=== PATIENT | male | born 1950 | race Caucasian/White ===

== ENCOUNTER 2022-02-18 10:01 | Inpatient (IN) ==
[2022-02-18] MEDS ORDERED: ONDANSETRON 4 MG/2 ML VIAL IV STA (12:03)
[2022-02-18] MEDS ORDERED: SODIUM CHLORIDE 0.9% 1,000 ML IV STA (12:03)
[2022-02-18 12:16] LABS: Basophils % 0.1 % (0.0-0.8); Eosinophils % 0.1 % (0.00-10.9); Hematocrit 26.9 VOL% (42.0-52.0); Hemoglobin 8.5 GM/DL (14.0-18.0); Immature Granulocytes % 0.9 %; Immature Granulocytes Absolute 0.11 #; Lymphocytes % 8.7 % (21.2-54.2); Mean Corpuscular HGB Conc 31.6 GM/DL (32-36); Mean Corpuscular Volume 69.5 FL (87-102); Mean Platelet Volume 10.8 FL (9.6-12.0); Monocytes # 0.8 10*3/uL (0.11-0.8); Monocytes % 6.8 % (1.7-12.7); Neutrophils % 83.4 % (38.7-73.9); Platelet Count 341 T/CUMM (130-400); Red Blood Count 3.87 MC/CUMM (3.8-5.5); Red Cell Distribution Width 19.2 % (9.3-17.3); White Blood Count 11.7 T/CUMM (4-12)
[2022-02-18 12:42] LABS: Albumin 2.1 G/DL (3.4-5.0); Bilirubin,Total 3.8 MG/DL (0.20-1.00); Calcium 8.3 MG/DL (8.5-10.1); Osmolality,Calculated 270.5 MOS/KG (273-304); Potassium 3.3 MMOL/L (3.5-5.1); Total Protein 6.5 G/DL (6.4-8.2)
[2022-02-18] MEDS ORDERED: cefTRIAXone 1,000 MG in SODIUM CHLORIDE 0.9% 100 ML IV STA (14:54)
[2022-02-18 15:48] LABS: Mucus,Urine Few /LPF (Occasional); RBC,Urine 2 /HPF (0-4); Squamous Epithelial Cell,Urine Occasional /HPF (0-10)
[2022-02-18 15:49] LABS: Bilirubin,Urine Large mg/dL (Negative); Blood, Urine Trace mg/dL (Negative); Glucose,Urine (UA) Negative (Negative); Ketones,Urine Negative (Negative); Nitrite,Urine Negative (Negative); Protein,Urine 100 mg/dL (Negative); Urine Appearance Clear (Clear); Urine Color Orange (Yellow); Urine Specific Gravity <= 1.005 (1.001-1.035); Urine Urobilinogen >= 8.0 eU/dL (<2.0); Urine pH 5.5 (4.5-8.0)
[2022-02-18] MEDS ORDERED: POTASSIUM CHLORIDE 20 MEQ TABLET PO ONE (16:07)
[2022-02-18] MEDS ORDERED: hydrALAZINE 20 MG/1 ML VIAL IV PRN (16:11)
[2022-02-18] MEDS: SODIUM CHLORIDE 0.9% 1,000 ML IV SCH (16:56)
[2022-02-18] MEDS: ALBUTEROL/IPRATROPIUM 3 ML NEB RESP TX SCH (17:10)
[2022-02-18] MEDS: MORPHINE 2 MG/1 ML SYRINGE IV PRN ×2 (18:48→23:15)
[2022-02-18] MEDS: ONDANSETRON 4 MG/2 ML VIAL IV PRN (18:49)
[2022-02-18] MEDS: TAMSULOSIN 0.4 MG CAPSULE PO SCH (22:05)
[2022-02-18] MEDS: FLUTICASONE/SALMETEROL 100-50 DISKUS 14 DOSE INH SCH (22:05)
[2022-02-18] MEDS: METOPROLOL TARTRATE 25 MG TABLET PO SCH (22:05)
[2022-02-19] MEDS: ALBUTEROL/IPRATROPIUM 3 ML NEB RESP TX SCH ×4 (00:05→18:52)
[2022-02-19 00:36] LABS: % Iron Saturation 3.8 % (18-50); Ferritin 320.2 ng/mL (26-388)
[2022-02-19] MEDS: SODIUM CHLORIDE 0.9% 1,000 ML IV SCH ×3 (03:57→23:52)
[2022-02-19 04:47] LABS: Basophils % 0.2 % (0.0-0.8); Eosinophils % 0.2 % (0.00-10.9); Hematocrit 24.4 VOL% (42.0-52.0); Hemoglobin 7.5 GM/DL (14.0-18.0); Immature Granulocytes % 1.2 %; Immature Granulocytes Absolute 0.12 #; Lymphocytes % 9.7 % (21.2-54.2); Mean Corpuscular HGB Conc 30.7 GM/DL (32-36); Mean Corpuscular Volume 70.5 FL (87-102); Mean Platelet Volume 10.6 FL (9.6-12.0); Monocytes # 0.8 10*3/uL (0.11-0.8); Monocytes % 8.5 % (1.7-12.7); Neutrophils % 80.2 % (38.7-73.9); Platelet Count 327 T/CUMM (130-400); Red Blood Count 3.46 MC/CUMM (3.8-5.5); Red Cell Distribution Width 19.6 % (9.3-17.3); White Blood Count 9.9 T/CUMM (4-12)
[2022-02-19 05:08] LABS: Albumin 1.8 G/DL (3.4-5.0); Bilirubin,Total 2.8 MG/DL (0.20-1.00); Calcium 7.8 MG/DL (8.5-10.1); Osmolality,Calculated 277.7 MOS/KG (273-304); Potassium 3.4 MMOL/L (3.5-5.1); Total Protein 5.3 G/DL (6.4-8.2)
[2022-02-19 07:57] LABS: PT Patient Result 11.4 SECS (10.1-12.1)
[2022-02-19] MEDS: cefTRIAXone 1,000 MG in SODIUM CHLORIDE 0.9% 100 ML IV ONE (08:43)
[2022-02-19] MEDS: OLMESARTAN 20 MG TABLET PO SCH (08:49)
[2022-02-19] MEDS: METOPROLOL TARTRATE 25 MG TABLET PO SCH ×2 (08:49→21:04)
[2022-02-19] MEDS: PANTOPRAZOLE 40 MG TABLET PO SCH (08:49)
[2022-02-19] MEDS: FLUTICASONE/SALMETEROL 100-50 DISKUS 14 DOSE INH SCH ×2 (08:50→22:03)
[2022-02-19] MEDS: amLODIPine 10 MG TABLET PO SCH (09:01)
[2022-02-19] MEDS: NICOTINE 21 MG/24 HR PATCH TRANSDERM SCH (09:11)
[2022-02-19] MEDS ORDERED: POTASSIUM CHLORIDE 20 MEQ TABLET PO ONE (14:43)
[2022-02-19] MEDS: MORPHINE 2 MG/1 ML SYRINGE IV PRN (19:02)
[2022-02-19] MEDS: TAMSULOSIN 0.4 MG CAPSULE PO SCH (21:04)
[2022-02-19] MEDS: FERROUS SULFATE 325 MG TABLET PO SCH (21:04)
[2022-02-20] MEDS: ALBUTEROL/IPRATROPIUM 3 ML NEB RESP TX SCH ×4 (00:20→19:39)
[2022-02-20] MEDS ORDERED: LIDOCAINE 2% TOP JELLY 20 ML VIAL INTRAURETH ONE (08:07)
[2022-02-20] MEDS: SODIUM CHLORIDE 0.9% 1,000 ML IV SCH ×2 (08:28→21:07)
[2022-02-20] MEDS ORDERED: DIAZEPAM 5 MG TABLET PO ONE (08:30)
[2022-02-20] MEDS ORDERED: fentaNYL 100 MCG/2 ML VIAL ONE (08:57)
[2022-02-20] MEDS ORDERED: MIDAZOLAM 2 MG/2 ML VIAL ONE (08:58)
[2022-02-20] MEDS: amLODIPine 10 MG TABLET PO SCH (09:00)
[2022-02-20] MEDS: FERROUS SULFATE 325 MG TABLET PO SCH ×2 (09:00→21:06)
[2022-02-20] MEDS: FLUTICASONE/SALMETEROL 100-50 DISKUS 14 DOSE INH SCH ×2 (09:00→21:07)
[2022-02-20] MEDS: OLMESARTAN 20 MG TABLET PO SCH (09:00)
[2022-02-20] MEDS: METOPROLOL TARTRATE 25 MG TABLET PO SCH ×2 (09:00→21:06)
[2022-02-20] MEDS: NICOTINE 21 MG/24 HR PATCH TRANSDERM SCH (09:00)
[2022-02-20] MEDS: PANTOPRAZOLE 40 MG TABLET PO SCH (09:00)
[2022-02-20] MEDS ORDERED: propofoL 200 MG/20 ML VIAL IV ONE (09:15)
[2022-02-20] MEDS ORDERED: ONDANSETRON 4 MG/2 ML VIAL ONE (09:15)
[2022-02-20] MEDS ORDERED: LIDOCAINE 2% 5 ML VIAL ONE (09:15)
[2022-02-20] MEDS: cefTRIAXone 1,000 MG in SODIUM CHLORIDE 0.9% 100 ML IV ONE (09:30)
[2022-02-20 10:05] LABS: Mucus,Urine Occasional /LPF (Occasional); Protein,Urine 100 mg/dL (Negative); RBC,Urine <1 /HPF (0-4); Urine Appearance Clear (Clear); Urine Color Amber (Yellow); Urine pH 5.5 (4.5-8.0)
[2022-02-20 10:06] LABS: Bilirubin,Urine Moderate mg/dL (Negative); Blood, Urine Trace mg/dL (Negative); Glucose,Urine (UA) 100 mg/dL (Negative); Ketones,Urine Negative (Negative); Nitrite,Urine Negative (Negative); Urine Urobilinogen > 8.0 eU/dL (<2.0)
[2022-02-20] MEDS: SODIUM CHLORIDE 0.45% 1,000 ML IV SCH (13:14)
[2022-02-20] MEDS: TAMSULOSIN 0.4 MG CAPSULE PO SCH (21:06)
[2022-02-21] MEDS: ALBUTEROL/IPRATROPIUM 3 ML NEB RESP TX SCH ×4 (00:30→19:48)
[2022-02-21] MEDS: SODIUM CHLORIDE 0.9% 1,000 ML IV SCH ×2 (06:09→17:04)
[2022-02-21 07:33] LABS: Osmolality,Calculated 279.4 MOS/KG (273-304); Potassium 3.8 MMOL/L (3.5-5.1)
[2022-02-21] MEDS: PANTOPRAZOLE 40 MG TABLET PO SCH (08:52)
[2022-02-21] MEDS: FLUTICASONE/SALMETEROL 100-50 DISKUS 14 DOSE INH SCH ×2 (08:53→20:19)
[2022-02-21] MEDS: OLMESARTAN 20 MG TABLET PO SCH (08:53)
[2022-02-21] MEDS: amLODIPine 10 MG TABLET PO SCH (08:53)
[2022-02-21] MEDS: FERROUS SULFATE 325 MG TABLET PO SCH ×2 (08:53→20:19)
[2022-02-21] MEDS: METOPROLOL TARTRATE 25 MG TABLET PO SCH ×2 (08:53→20:19)
[2022-02-21] MEDS: NICOTINE 21 MG/24 HR PATCH TRANSDERM SCH (08:54)
[2022-02-21] MEDS: SODIUM CHLORIDE 0.45% 1,000 ML IV SCH (11:37)
[2022-02-21] MEDS: TAMSULOSIN 0.4 MG CAPSULE PO SCH (20:19)
[2022-02-21] MEDS: ONDANSETRON 4 MG/2 ML VIAL IV PRN (20:20)
[2022-02-21] MEDS: MORPHINE 2 MG/1 ML SYRINGE IV PRN (20:20)
[2022-02-22] MEDS: ALBUTEROL/IPRATROPIUM 3 ML NEB RESP TX SCH ×4 (00:05→19:05)
[2022-02-22 04:52] LABS: Basophils % 0.2 % (0.0-0.8); Eosinophils # 0.1 10*3/uL (0.0-0.87); Eosinophils % 0.5 % (0.00-10.9); Hematocrit 25.2 VOL% (42.0-52.0); Hemoglobin 7.8 GM/DL (14.0-18.0); Immature Granulocytes % 1.8 %; Immature Granulocytes Absolute 0.19 #; Lymphocytes # 0.9 10*3/uL (1.4-4.0); Lymphocytes % 8.1 % (21.2-54.2); Mean Platelet Volume 10.1 FL (9.6-12.0); Monocytes # 0.7 10*3/uL (0.11-0.8); Monocytes % 6.7 % (1.7-12.7); Neutrophils % 82.7 % (38.7-73.9); Platelet Count 364 T/CUMM (130-400); White Blood Count 10.7 T/CUMM (4-12)
[2022-02-22 05:09] LABS: Albumin 1.8 G/DL (3.4-5.0); Bilirubin,Total 4.5 MG/DL (0.20-1.00); Calcium 8.5 MG/DL (8.5-10.1); Osmolality,Calculated 277.7 MOS/KG (273-304); Potassium 3.5 MMOL/L (3.5-5.1); Total Protein 5.6 G/DL (6.4-8.2)
[2022-02-22] MEDS: NICOTINE 21 MG/24 HR PATCH TRANSDERM SCH (08:46)
[2022-02-22] MEDS: amLODIPine 10 MG TABLET PO SCH (08:47)
[2022-02-22] MEDS: SODIUM CHLORIDE 0.9% 1,000 ML IV SCH (08:47)
[2022-02-22] MEDS: FLUTICASONE/SALMETEROL 100-50 DISKUS 14 DOSE INH SCH ×2 (08:47→22:19)
[2022-02-22] MEDS: FERROUS SULFATE 325 MG TABLET PO SCH ×2 (08:47→22:19)
[2022-02-22] MEDS: OLMESARTAN 20 MG TABLET PO SCH (08:47)
[2022-02-22] MEDS: METOPROLOL TARTRATE 25 MG TABLET PO SCH ×2 (08:47→22:19)
[2022-02-22] MEDS: PANTOPRAZOLE 40 MG TABLET PO SCH (08:47)
[2022-02-22] MEDS: MORPHINE 2 MG/1 ML SYRINGE IV PRN (08:48)
[2022-02-22] MEDS ORDERED: ERGOCALCIFEROL 50,000 UNIT CAPSULE PO SCH (13:30)
[2022-02-22] MEDS: TAMSULOSIN 0.4 MG CAPSULE PO SCH (22:20)
[2022-02-23 06:12] LABS: Basophils % 0.2 % (0.0-0.8); Eosinophils % 0.4 % (0.00-10.9); Hematocrit 26.3 VOL% (42.0-52.0); Hemoglobin 8.2 GM/DL (14.0-18.0); Immature Granulocytes % 2.8 %; Immature Granulocytes Absolute 0.32 #; Lymphocytes # 0.9 10*3/uL (1.4-4.0); Mean Corpuscular HGB Conc 31.2 GM/DL (32-36); Mean Corpuscular Volume 70.9 FL (87-102); Mean Platelet Volume 10.3 FL (9.6-12.0); Monocytes # 0.7 10*3/uL (0.11-0.8); Monocytes % 6.2 % (1.7-12.7); Neutrophils % 82.4 % (38.7-73.9); Platelet Count 358 T/CUMM (130-400); Red Blood Count 3.71 MC/CUMM (3.8-5.5); Red Cell Distribution Width 20.1 % (9.3-17.3); White Blood Count 11.3 T/CUMM (4-12)
[2022-02-23 06:43] LABS: Albumin 1.8 G/DL (3.4-5.0); Bilirubin,Total 5.3 MG/DL (0.20-1.00); Calcium 8.6 MG/DL (8.5-10.1); Osmolality,Calculated 275.7 MOS/KG (273-304); Total Protein 5.6 G/DL (6.4-8.2)
[2022-02-23] MEDS: ALBUTEROL/IPRATROPIUM 3 ML NEB RESP TX SCH ×4 (07:14→20:35)
[2022-02-23] MEDS: amLODIPine 10 MG TABLET PO SCH (08:56)
[2022-02-23] MEDS: METOPROLOL TARTRATE 25 MG TABLET PO SCH ×2 (08:56→20:54)
[2022-02-23] MEDS: OLMESARTAN 20 MG TABLET PO SCH (08:56)
[2022-02-23] MEDS: NICOTINE 21 MG/24 HR PATCH TRANSDERM SCH (08:57)
[2022-02-23] MEDS: FERROUS SULFATE 325 MG TABLET PO SCH ×2 (08:57→20:55)
[2022-02-23] MEDS: FLUTICASONE/SALMETEROL 100-50 DISKUS 14 DOSE INH SCH ×2 (08:57→20:55)
[2022-02-23] MEDS: PANTOPRAZOLE 40 MG TABLET PO SCH (08:57)
[2022-02-23] MEDS ORDERED: DEXAMETHASONE INJ 10 MG in SODIUM CHLORIDE 0.9% 50 ML IV ONE (15:30)
[2022-02-23] MEDS ORDERED: PALONOSETRON 0.25 MG/5 ML VIAL IV ONE (15:30)
[2022-02-23] MEDS ORDERED: ETOPOSIDE 200 MG in SODIUM CHLORIDE 0.9% 500 ML IV ONE (16:00)
[2022-02-23] MEDS: MORPHINE 2 MG/1 ML SYRINGE IV PRN (16:39)
[2022-02-23] MEDS: TAMSULOSIN 0.4 MG CAPSULE PO SCH (20:54)
[2022-02-23] MEDS: POLYETHYLENE GLYCOL POWDER 17 GM PACK PO SCH (20:55)
[2022-02-24] MEDS: ALBUTEROL/IPRATROPIUM 3 ML NEB RESP TX SCH ×4 (00:19→19:50)
[2022-02-24 05:22] LABS: Basophils % 0.1 % (0.0-0.8); Hematocrit 26.9 VOL% (42.0-52.0); Hemoglobin 8.1 GM/DL (14.0-18.0); Immature Granulocytes % 1.7 %; Lymphocytes # 0.6 10*3/uL (1.4-4.0); Lymphocytes % 4.6 % (21.2-54.2); Mean Corpuscular HGB Conc 30.1 GM/DL (32-36); Mean Corpuscular Volume 71.4 FL (87-102); Mean Platelet Volume 9.9 FL (9.6-12.0); Monocytes # 0.5 10*3/uL (0.11-0.8); Monocytes % 4.3 % (1.7-12.7); Neutrophils % 89.3 % (38.7-73.9); Platelet Count 367 T/CUMM (130-400); Red Blood Count 3.77 MC/CUMM (3.8-5.5); Red Cell Distribution Width 20.2 % (9.3-17.3); White Blood Count 12.1 T/CUMM (4-12)
[2022-02-24 05:55] LABS: Band Neutrophils 2 % (0-10); Hypochromia 1+; Lymphocytes 1 % (20-55); Total Cells Counted 100
[2022-02-24 05:56] LABS: Microcytosis 1+; Ovalocytes Few; Platelet Estimate Normal; Polychromasia Slight; Target Cells Few
[2022-02-24 05:57] LABS: Albumin 1.6 G/DL (3.4-5.0); Calcium 8.2 MG/DL (8.5-10.1); Total Protein 5.3 G/DL (6.4-8.2)
[2022-02-24] MEDS: POLYETHYLENE GLYCOL POWDER 17 GM PACK PO SCH ×2 (10:35→21:42)
[2022-02-24] MEDS: PANTOPRAZOLE 40 MG TABLET PO SCH (10:36)
[2022-02-24] MEDS: OLMESARTAN 20 MG TABLET PO SCH (10:37)
[2022-02-24] MEDS: FERROUS SULFATE 325 MG TABLET PO SCH ×2 (10:38→21:40)
[2022-02-24] MEDS: METOPROLOL TARTRATE 25 MG TABLET PO SCH ×2 (10:38→22:54)
[2022-02-24] MEDS: amLODIPine 10 MG TABLET PO SCH (10:39)
[2022-02-24] MEDS: NICOTINE 21 MG/24 HR PATCH TRANSDERM SCH (10:40)
[2022-02-24] MEDS: FLUTICASONE/SALMETEROL 100-50 DISKUS 14 DOSE INH SCH ×2 (10:42→22:55)
[2022-02-24] MEDS: LINACLOTIDE 145 MCG CAPSULE PO SCH (10:50)
[2022-02-24] MEDS ORDERED: FOSAPREPITANT 150 MG in SODIUM CHLORIDE 0.9% 100 ML IV ONE (13:00)
[2022-02-24] MEDS ORDERED: PALONOSETRON 0.25 MG/5 ML VIAL IV ONE (13:00)
[2022-02-24] MEDS ORDERED: DEXAMETHASONE INJ 10 MG in SODIUM CHLORIDE 0.9% 50 ML IV ONE (13:00)
[2022-02-24] MEDS ORDERED: ETOPOSIDE 150 MG in SODIUM CHLORIDE 0.9% 500 ML IV ONE (13:30)
[2022-02-24] MEDS ORDERED: CARBOplatin 500 MG in SODIUM CHLORIDE 0.9% 250 ML IV ONE (14:30)
[2022-02-24] MEDS: MORPHINE 2 MG/1 ML SYRINGE IV PRN (16:01)
[2022-02-24] MEDS: TAMSULOSIN 0.4 MG CAPSULE PO SCH (21:41)
[2022-02-25] MEDS: ALBUTEROL/IPRATROPIUM 3 ML NEB RESP TX SCH ×3 (00:12→14:49)
[2022-02-25 05:00] LABS: Basophils % 0.1 % (0.0-0.8); Hemoglobin 8.2 GM/DL (14.0-18.0); Immature Granulocytes % 0.9 %; Immature Granulocytes Absolute 0.11 #; Lymphocytes # 0.4 10*3/uL (1.4-4.0); Lymphocytes % 2.9 % (21.2-54.2); Mean Corpuscular HGB Conc 30.4 GM/DL (32-36); Mean Corpuscular Volume 71.8 FL (87-102); Mean Platelet Volume 10.6 FL (9.6-12.0); Monocytes # 0.2 10*3/uL (0.11-0.8); Monocytes % 1.6 % (1.7-12.7); Neutrophils % 94.5 % (38.7-73.9); Platelet Count 380 T/CUMM (130-400); Red Blood Count 3.76 MC/CUMM (3.8-5.5); Red Cell Distribution Width 20.4 % (9.3-17.3); White Blood Count 12.8 T/CUMM (4-12)
[2022-02-25 05:28] LABS: Albumin 1.6 G/DL (3.4-5.0); Bilirubin,Total 6.7 MG/DL (0.20-1.00); Calcium 7.8 MG/DL (8.5-10.1); Hypochromia Slight; Lymphocytes 6 % (20-55); Microcytosis Slight; Osmolality,Calculated 284.8 MOS/KG (273-304); Platelet Estimate Adequate; Potassium 4.2 MMOL/L (3.5-5.1); Total Cells Counted 100; Total Protein 5.5 G/DL (6.4-8.2)
[2022-02-25] MEDS: NICOTINE 21 MG/24 HR PATCH TRANSDERM SCH (10:06)
[2022-02-25] MEDS: FERROUS SULFATE 325 MG TABLET PO SCH (10:07)
[2022-02-25] MEDS: PANTOPRAZOLE 40 MG TABLET PO SCH (10:07)
[2022-02-25] MEDS: METOPROLOL TARTRATE 25 MG TABLET PO SCH (10:07)
[2022-02-25] MEDS: LINACLOTIDE 145 MCG CAPSULE PO SCH (10:07)
[2022-02-25] MEDS: amLODIPine 10 MG TABLET PO SCH (10:07)
[2022-02-25] MEDS: OLMESARTAN 20 MG TABLET PO SCH (10:07)
[2022-02-25] MEDS: POLYETHYLENE GLYCOL POWDER 17 GM PACK PO SCH (10:07)
[2022-02-25] MEDS ORDERED: PALONOSETRON 0.25 MG/5 ML VIAL IV ONE (10:30)
[2022-02-25] MEDS ORDERED: DEXAMETHASONE 10 MG/1 ML VIAL IV ONE (10:30)
[2022-02-25] MEDS: FLUTICASONE/SALMETEROL 100-50 DISKUS 14 DOSE INH SCH (10:51)
[2022-02-25] MEDS ORDERED: ETOPOSIDE 150 MG in SODIUM CHLORIDE 0.9% 500 ML IV ONE (11:00)
[2022-02-25] MEDS: MORPHINE 2 MG/1 ML SYRINGE IV PRN (11:45)
[2022-02-25 16:38] VITALS: BP 133/53
== END 2022-02-25 17:20 | disposition home or self-care (01) | DRG 436 ==
LOC: N.ED 10:01 → N.EDINP 16:11 → SUATTDRO 16:11 → N.2E 19:50 → N.TELES 02-23 16:25
PROVIDERS: ADMIT Internal Medicine; ATTEND Hospitalist